=== PATIENT | female | born 1960 ===

== ENCOUNTER 2025-10-04 11:00 | Day surgery (SDC) | payer OTHER ==
[2025-09-30 09:20] VITALS: BP 150/79
[2025-09-30 09:34] LABS: BASO % 0.5 % (0.1-1.2); EOS # 0.06 (0.04-0.54); EOS % 0.7 % (0.7-7.0); LYMPH # 2.57 (1.18-3.74); LYMPH % 29.8 % (19.3-53.1); MEAN PLATELET VOLUME 9.50 fl (9.4-12.4); MONO # 0.53 (0.24-0.82); MONO % 6.2 % (4.7-12.5); NEUT # 5.39 (1.56-6.13); NEUT % 62.6 % (34.0-71.1); RED CELL DISTRIBUTION WIDTH 12.9 % (11.6-14.4)
[2025-09-30 09:43] LABS: URINE APPEARANCE Clear; URINE BILIRRUBIN Negative (NEGATIVE); URINE BLOOD Small; URINE COLOR Yellow; URINE GLUCOSE Negative (NEGATIVE); URINE KETONE Negative (NEGATIVE); URINE LEUKOCYTE Trace; URINE NITRATE Negative; URINE PROTEIN Negative (NEGATIVE); URINE UROBILINOGEN 0.2 E.U./dl
[2025-09-30 09:47] LABS: URINE BACTERIA 66.0 uL (0.0-1933); URINE EPITHELIAL CELLS 7.8 uL (0.0-38.8); URINE RBC 10.3 uL (0.0-20.8); URINE WBC 3.6 uL (0.0-23.2)
[2025-09-30 10:00] LABS: INR 0.96
[2025-09-30 10:05] LABS: URINE CAST 0.00 uL (0.0-1.40)
[2025-09-30 10:06] LABS: ALT/SGPT 24.0 U/L (12-78); AST/SGOT 18.0 U/L (15-37); BILIRUBIN TOTAL 0.69 mg/dL (0.3-1.2); BUN CREA RATIO 20.0 (7.0-25.0); CREATININE SERUM 0.75 mg/dL (0.55-1.02); GFR 77.55; GLOBULINA 4.2 G/DL (2.4-3.5); GLUCOSE FASTING 124.0 mg/dL (65-100); OSMOLALITY SERUM 285.0 MOSM/KG (275-295)
[~2025-10-04] VITALS: Ht 167.6 cm; Wt 80.3 kg
[~2025-10-04 11:00] MED LIST: CLONIDINE HCL0.2 MG PO; COZAAR100 MG PO; HYDRODIURIL12.5 MG PO; LIPITOR40 MG PO; METFORMIN HCL500 M3 PO; VERAPAMIL ER240 MG PO
[2025-10-04] MEDS ORDERED: POVIDONE-IODINE 118 ML BOTT TOP ONE (12:21)
[2025-10-04] MEDS ORDERED: CHLORHEXIDINE GLUCONATE 120 ML BOTTLE TOP ONE (13:15)
== END 2025-10-04 18:10 | disposition home or self-care (01) ==
LOC: CIR.AMB 11:00
PROVIDERS: ATTEND Obstetrics & Gynecology
DX: N84.0 Polyp of corpus uteri (principal); N95.0 Postmenopausal bleeding